=== PATIENT | male | born 1950 | race Two or more races ===

== ENCOUNTER 2020-08-26 10:29 | Outpatient (CLI) | payer OTHER | END 2020-08-26 10:41 | disposition home or self-care (01) | LOC: MRI 10:29 | PROVIDERS: ATTEND General Practice | DX: M54.5 Low back pain (principal); M54.42 Lumbago with sciatica, left side | CPT/HCPCS: 72148 ==

== ENCOUNTER 2020-11-14 13:20 | Outpatient (CLI) | payer OTHER | END 2020-11-14 13:24 | disposition home or self-care (01) | LOC: NUCLEAR 13:20 | DX: M81.0 Age-related osteoporosis without current pathological fracture (principal) ==

== ENCOUNTER 2021-05-18 08:55 | Outpatient (CLI) | payer OTHER | END 2021-05-18 08:57 | disposition home or self-care (01) | LOC: TOM 08:55 | PROVIDERS: ATTEND General Practice | DX: R10.9 Unspecified abdominal pain (principal); R97.20 Elevated prostate specific antigen [PSA]; M79.606 Pain in leg, unspecified; I73.9 Peripheral vascular disease, unspecified ==

== ENCOUNTER 2022-03-30 07:18 | Outpatient (CLI) | payer OTHER | END 2022-03-30 07:19 | disposition home or self-care (01) | LOC: NUCLEAR 07:18 | PROVIDERS: ATTEND Internal Medicine Pulmonary Disease | DX: C34.00 Malignant neoplasm of unspecified main bronchus (principal); C34.92 Malignant neoplasm of unspecified part of left bronchus or lung | CPT/HCPCS: 78816; A9552 ==

== ENCOUNTER 2023-01-03 07:09 | Outpatient (CLI) | payer OTHER | END 2023-01-03 07:10 | disposition home or self-care (01) | LOC: NUCLEAR 07:09 | PROVIDERS: ATTEND Thoracic Surgery (Cardiothoracic Vascular Surgery) | DX: I25.110 Atherosclerotic heart disease of native coronary artery with unstable angina pectoris (principal) ==

== ENCOUNTER 2023-05-23 12:33 | Outpatient (CLI) | payer OTHER | END 2023-05-23 12:41 | disposition home or self-care (01) | LOC: MRI 12:33 | PROVIDERS: ATTEND Specialist | DX: M54.59 Other low back pain (principal) | CPT/HCPCS: 72148 ==

== ENCOUNTER 2023-06-06 09:54 | Outpatient (CLI) | payer OTHER | END 2023-06-06 09:55 | disposition home or self-care (01) | LOC: NUCLEAR 09:54 | PROVIDERS: ATTEND Specialist | DX: I10 Essential (primary) hypertension (principal); I73.9 Peripheral vascular disease, unspecified ==